=== PATIENT | female | born 1990 | race Caucasian/White ===

== ENCOUNTER 2018-10-20 19:36 | Emergency (ER) | payer OTHER ==
[~2018-10-20] VITALS: Ht 180.3 cm; Wt 86.2 kg
[~2018-10-20 19:36] MED LIST: COLACE100 MG PO; HYDROCODONE-AP1 EAC6 PO
[2018-10-20] MEDS ORDERED: AUGMENTIN600 MG/5 M PO (19:54)
[2018-10-20 21:03] VITALS: BP 119/72
== END 2018-10-20 21:04 | disposition home or self-care (01) ==
LOC: ER 19:36
DX: T19.2XXA Foreign body in vulva and vagina, initial encounter (principal); X58.XXXA Exposure to other specified factors, initial encounter; Y93.89 Activity, other specified; Y92.89 Other specified places as the place of occurrence of the external cause; Y99.8 Other external cause status